=== PATIENT | female | born 1965 ===

== ENCOUNTER 2018-08-03 21:14 | Emergency (ER) | payer MEDICAID ==
[2018-08-03] MEDS ORDERED: Sodium Chloride 0.9% 1,000 ML IV ONE (21:45)
[2018-08-03 21:49] VITALS: RESP 20
[2018-08-03 21:52] LABS: SQUAMOUS EPITHIAL < 1 /hpf (0-5); URINE BACTERIA RARE (<OCC); URINE BILIRUBIN NEGATIVE (NEGATIVE); URINE BLOOD NEGATIVE (NEGATIVE); URINE CLARITY Clear (Clear); URINE COLOR Straw (YELLOW); URINE GLUCOSE (UA) NORMAL (Normal); URINE LEUKOCYTE ESTERASE NEG Leu/uL (Negative); URINE PROTEIN NEGATIVE (NEGATIVE); URINE UROBILINOGEN NORMAL mg/dL (0.2-1.0)
[2018-08-03 21:53] LABS: BASO # 0.1 K/uL (0.0-0.2); BASO % 0.5 % (0.0-2.0); EOS % 0.1 % (0.0-4.0); HEMOGLOBIN 15.6 g/dL (11.0-16.0); LYMPH # 1.2 K/uL (1.0-4.3); LYMPH % 10.7 % (20.0-40.0); MEAN CELL VOLUME 92.2 fL (81.0-99.0); MEAN CORPUSCULAR HEMOGLOBIN 30.5 pg (27.0-31.0); MEAN CORPUSCULAR HGB CONC 33.1 g/dL (33.0-37.0); MEAN PLATELET VOLUME 11.9 fL (7.2-11.7); MONO # 0.6 K/uL (0.0-0.8); MONO % 5.4 % (0.0-10.0); NEUT % 83.3 % (50.0-75.0); RBC 5.12 Mil/uL (3.80-5.20); RED CELL DISTRIBUTION WIDTH 13.3 % (11.5-14.5); WHITE BLOOD COUNT 10.8 K/uL (4.8-10.8)
[2018-08-03] MEDS ORDERED: Sodium Chloride 0.9% 1,000 ML ONE (21:55)
[2018-08-03 21:58] LABS: AMYLASE 218 U/L (30-110); BLOOD UREA NITROGEN 14 mg/dL (7-17); CALCIUM 9.6 mg/dl (8.6-10.4); GFR NON-AFRICAN AMERICAN > 60; LIPASE 92 U/L (23-300)
[2018-08-03 22:00] LABS: ALB/GLOB RATIO 1.4 (1.0-2.1); ALBUMIN 5.3 g/dL (3.5-5.0); ALT/SGPT 9 U/L (9-52); AST/SGOT 42 U/L (14-36)
[2018-08-03] MEDS ORDERED: Belladonna-Phenobarbital PO STA (22:05)
[2018-08-03] MEDS ORDERED: Aluminum Hydroxide/Magnesium Hydroxide Susp (30 mL) PO STA (22:05)
[2018-08-03] MEDS ORDERED: Aluminum Hydroxide/Magnesium Hydroxide Susp (30 mL) ONE (22:18)
[2018-08-03] MEDS ORDERED: Belladonna-Phenobarbital ONE (22:18)
[2018-08-04 00:34] VITALS: BP 136/85; PULSE 74; TEMP 98.5; O2SAT 97
--- NOTE | 2018-08-04 02:24 | C.PDOC ---
History Of Present Illness 53 year old female presents with right sided abdominal pain since yesterday with nausea. Denies vomiting, fever, bloody urine, bloody stool, or dysuria. She has Hx of gastritis but states this feels different. Chief Complaint (Nursing): Abdominal Pain History Per: Patient History/Exam Limitations: no limitations Onset/Duration Of Symptoms: Days (Yesterday) Current Symptoms Are (Timing): Still Present Location Of Pain/Discomfort: Other (Right sided) Quality Of Discomfort: Unable To Describe Associated Symptoms: denies: Fever, Chills, Nausea, Vomiting, Urinary Symptoms, Other (bloody stool) Exacerbating Factors: None Alleviating Factors: None Recent travel outside of the [place]: No Past Medical History Reviewed: Historical Data, Nursing Documentation, Vital Signs Vital Signs: Last Vital Signs Temp 98.5 F 08/04/18 00:33 Pulse 74 08/04/18 00:33 Resp 20 08/04/18 00:33 BP 136/85 08/04/18 00:33 Pulse Ox 97 08/04/18 00:33 - Medical History PMH: Gastritis, HTN Denies: Chronic Kidney Disease Family History: States: Unknown Family Hx - Social History Hx Alcohol Use: No Hx Substance Use: No - Immunization History Hx Tetanus Toxoid Vaccination: No Hx Influenza Vaccination: Yes Hx Pneumococcal Vaccination: No Review Of Systems Constitutional: Negative for: Fever Cardiovascular: Negative for: Chest Pain, Palpitations Respiratory: Negative for: Cough, Shortness of Breath Gastrointestinal: Positive for: Nausea, Abdominal Pain. Negative for: Vomiting Genitourinary: Negative for: Dysuria, Hematuria, Other (Bloody stool) Physical Exam - Physical Exam Appears: Non-toxic, Other (Thin) Skin: Normal Color, Warm, Dry Head: Atraumatic, Normacephalic Eye(s): bilateral: Normal Inspection Oral Mucosa: Moist Neck: Normal, Supple Chest: Symmetrical, No Tenderness Cardiovascular: Rhythm Regular Respiratory: Normal Breath Sounds, No Rales, No Rhonchi, No Wheezing Gastrointestinal/Abdominal: Soft, Tenderness (Right sided), No Distention, No Guarding, No Rebound Back: No CVA Tenderness Neurological/Psych: Oriented x3, Normal Speech ED Course And Treatment - Laboratory Results Result Diagrams: 08/03/18 21:40 08/03/18 21:40 Lab Results: APTT 37 SECONDS (21-34) H 08/03/18 21:40 Total Bilirubin 1.3 mg/dL (0.2-1.3) 08/03/18 21:40 AST 42 U/L (14-36) H 08/03/18 21:40 ALT 9 U/L (9-52) 08/03/18 21:40 Alkaline Phosphatase 122 U/L (38-126) 08/03/18 21:40 Total Protein 9.0 g/dL (6.3-8.3) H 08/03/18 21:40 Albumin 5.3 g/dL (3.5-5.0) H 08/03/18 21:40 Globulin 3.7 gm/dL (2.2-3.9) 08/03/18 21:40 Albumin/Globulin Ratio 1.4 (1.0-2.1) 08/03/18 21:40 Amylase 218 U/L (30-110) H 08/03/18 21:40 Lipase 92 U/L (23-300) 08/03/18 21:40 Urine Color Straw (YELLOW) 08/03/18 21:40 Urine Clarity Clear (Clear) 08/03/18 21:40 Urine pH 7.0 (5.0-8.0) 08/03/18 21:40 Ur Specific Magness 1.009 (1.003-1.030) 08/03/18 21:40 Urine Protein Negative mg/dL (NEGATIVE) 08/03/18 21:40 Urine Glucose (UA) Normal mg/dL (Normal) 08/03/18 21:40 Urine Ketones Trace mg/dL (NEGATIVE) 08/03/18 21:40 Urine Blood Negative (NEGATIVE) 08/03/18 21:40 Urine Nitrate Negative (NEGATIVE) 08/03/18 21:40 Urine Bilirubin Negative (NEGATIVE) 08/03/18 21:40 Urine Urobilinogen Normal mg/dL (0.2-1.0) 08/03/18 21:40 Ur Leukocyte Esterase Neg José Luis/uL (Negative) 08/03/18 21:40 Urine WBC (Auto) < 1 /hpf (0-5) 08/03/18 21:40 Urine RBC (Auto) < 1 /hpf (0-3) 08/03/18 21:40 Ur Squamous Epith Cells < 1 /hpf (0-5) 08/03/18 21:40 Urine Bacteria Rare (<OCC) 08/03/18 21:40 O2 Sat by Pulse Oximetry: 97 - CT Scan/US CT abd/pel Other Rad Studies (CT/US): Read By Radiologist, Radiology Report Reviewed CT/US Interpretation: EXAM: CT Abdomen and Pelvis with IV contrast. CLINICAL HISTORY: Right abd pain. TECHNIQUE: Axial computed tomography images of the abdomen and pelvis with intravenous contrast. 0.00 mGy-cm. CONTRAST: With; VISI 320 100MLS. COMPARISON: None provided. FINDINGS: LUNG BASES: The lung bases appear clear. No pleural effusions are seen. LIVER: Unremarkable. GALLBLADDER AND BILE DUCTS: The gallbladder appears within normal limits. No radioopaque gallstones are seen. No biliary ductal dilatation is evident. PANCREAS: Unremarkable. SPLEEN: Unremarkable. ADRENAL GLANDS: Unremarkable. KIDNEYS, URETERS, AND BLADDER: The kidneys appear within normal limits. There is no hydronephrosis or hydroureter. No urinary calculi are seen. The urinary bladder is normal in size and configuration. STOMACH AND BOWEL: Unremarkable appearance of the stomach. No evidence of bowel obstruction. There is mucosal wall thickening seen in the ascending colon with subtle pericolonic stranding present compatible with colitis. Additionally, mucosal wall is edematous thickening is seen in the sigmoid-rectosigmoid colon and rectum compatible with colitis/proctitis. Mucosal wall thickening is also seen throughout the small intestinal tract compatible with diffuse enteritis. Infectious or inflammatory etiologies are thought most likely. APPENDIX: No evidence of acute appendicitis on CT examination. PERITONEUM: No free fluid. No free air. LYMPH NODES: No lymphadenopathy is evident. REPRODUCTIVE: Unremarkable as visualized. VASCULATURE: No evidence of abdominal aortic aneurysm. Very minor atheromatous plaquing is noted. BONES: No aggressive appearing osseous lesion. No acute osseous pathology evident. IMPRESSION: 1. Findings compatible with diffuse enteritis. 2. Evidence of colitis involving the ascending colon, sigmoid, rectosigmoid colon. Evidence of proctitis is noted. Progress Note: CT abd/pel, blood work, and urinalysis ordered. IV fluids, zofran, toradol, maalox, pepcid, and administered. Disposition - Disposition Referrals: [facility] [Outside] [facility] [Outside] Disposition: HOME/ ROUTINE Disposition Time: 00:10 Condition: IMPROVED Additional Instructions: GLENDALY A YOUSSEF PIERRE, thank you for letting us take care of you today. The emergency medical care you received today was directed at your acute symptoms. If you were prescribed any medication, please fill it and take as directed. It may take several days for your symptoms to resolve. Return to the Emergency Department if your symptoms worsen, do not improve, or if you have any other problems. Please contact your doctor or call one of the physicians/clinics you have been referred to that are listed on the Patient Visit Information form that is included in your discharge packet. Bring any paperwork you were given at [facility] with you along with any medications you are taking to your follow up visit. Our treatment cannot replace ongoing medical care by a primary care provider outside of the emergency department. [facility] to be part of your care today. Follow up with the clinic this week for re-evaluation and further management. GAVIN PIERRE, caroline por dejarnos cuidar de ruma drake. La atencin mdica de emergencia que recibi hoy se dirigi a durga sntomas agudos. Si le recetaron algn medicamento, llnelo y tmelo segn las indicaciones. Los sntomas pueden tardar varios garcia en resolverse. Regrese al Departamento de Emergencias si durga sntomas empeoran, no mejoran o si tiene otros problemas. Comunquese con del cid mdico o llame a jia de los mdicos / clnicas a los que olsen sido referido que figuran en el formulario de Informacin de visita al paciente que se incluye en del cid paquete de soni. Lleve todos los documentos que le entregaron al momento del soni junto con todos los medicamentos que est tomando para del cid visita de seguimiento. Nuestro tratamiento no puede reemplazar la atencin mdica continua por un proveedor de atencin primaria fuera del departamento de emergencias. Caroline por permitir que el equipo de [facility] sea parte de del cid atencin hoy. Paulo un seguimiento con la clnica esta semana para reevaluar y administrar ms. Prescriptions: Ciprofloxacin [Cipro] 500 mg PO BID #14 tab Ibuprofen [Motrin] 600 mg PO Q6 PRN #20 tab PRN Reason: Pain, Moderate (4-7) metroNIDAZOLE [Flagyl] 500 mg PO TID #21 tab Instructions: Colitis Forms: [employer] (Dominican), Work Excuse Print Language: BURUNDIAN - Clinical Impression Clinical Impression: Colitis - Scribe Statement The provider has reviewed the documentation as recorded by the Scribe Jose Garcia All medical record entries made by the Scribe were at my direction and person ally dictated by me. I have reviewed the chart and agree that the record accurately reflects my personal performance of the history, physical exam, medical decision making, and the department course for this patient. I have also personally directed, reviewed, and agree with the discharge instructions and disposition.
--- NOTE | 2018-08-04 09:02 | CT ---
Date of service: 08/03/2018 PROCEDURE: CT Abdomen and Pelvis with contrast HISTORY: right-sided abdominal pain COMPARISON: None available TECHNIQUE: Contrast dose: 100 mL Visipaque 320 IV Radiation dose: Total exam DLP = 202.84 mGy-cm. This CT exam was performed using one or more of the following dose reduction techniques: Automated exposure control, adjustment of the mA and/or kV according to patient size, and/or use of iterative reconstruction technique. FINDINGS: LOWER THORAX: No visible consolidation, pleural effusion, or pneumothorax. LIVER: Unremarkable. GALLBLADDER AND BILE DUCTS: Unremarkable. PANCREAS: Unremarkable. SPLEEN: Unremarkable. ADRENALS: Unremarkable. KIDNEYS AND URETERS: The kidneys enhance symmetrically. No hydronephrosis or obstructing calculus identified. VASCULATURE: No aortic aneurysm. Atherosclerotic calcifications/mural plaque present in the aorta. BOWEL: Stomach is nondistended. Lack of oral contrast limits evaluation for bowel pathology. Bowel loops appear within normal limits of caliber without evidence of obstruction. Moderate diffuse constipation. APPENDIX: Dilated fluid filled tubular structure in the right lower quadrant measures approximately 12 mm in diameter. Surrounding inflammatory changes. Constellation of findings consistent with acute appendicitis. Correlate clinically. PERITONEUM: Small pelvic free fluid. No definite free air. LYMPH NODES: No bulky adenopathy identified. BLADDER: Unremarkable. REPRODUCTIVE: Unremarkable. BONES: No acute osseous abnormality is detected. OTHER FINDINGS: None. IMPRESSION: Dilated fluid filled tubular structure in the right lower quadrant measures approximately 12 mm in diameter. Surrounding inflammatory changes. Constellation of findings consistent with acute appendicitis. Correlate clinically. Preliminary impression was provided by [employer]. Findings discussed with CHRISTOS Briggs on 08/04/18 at 8:57 a.m.
== END 2018-08-04 00:40 | disposition home or self-care (01) ==
LOC: C.ER 21:14
DX: K52.9 Noninfective gastroenteritis and colitis, unspecified (principal); I10 Essential (primary) hypertension
CPT/HCPCS: 74177; 80053; 81001; 82150; 83690; 85025; 85730; 96374; 96375; 99284; J1885; J2405; J7030

== ENCOUNTER 2018-08-04 11:49 | Inpatient (IN) | payer MEDICAID, OTHER ==
--- NOTE | 2018-08-04 12:29 | C.PDOC ---
History Of Present Illness 53 y/o female with a PMHx of HTN and HLD returns to the ED for evaluation after being called back due to updated CT read of appendicitis this morning. Patient was seen here in the ED last night for right lower quadrant abdominal pain, and was discharged with a diagnosis of colitis with prescriptions for cipro and flagyl. Pt had N/V yesterday but none today. She is still complaining of RLQ pain on arrival today. Denies any fever, chills, nausea, vomiting, back pain, urinary symptoms, diarrhea, chest pain, SOB, or any other associated symptoms today. Time Seen by Provider: 08/04/18 12:10 Chief Complaint (Nursing): Abdominal Pain History Per: Patient History/Exam Limitations: no limitations Onset/Duration Of Symptoms: Days Current Symptoms Are (Timing): Still Present Location Of Pain/Discomfort: RLQ Past Medical History Reviewed: Historical Data, Nursing Documentation, Vital Signs Vital Signs: Last Vital Signs Temp 98.2 F 08/04/18 12:02 Pulse 72 08/04/18 12:02 Resp 18 08/04/18 12:02 BP 120/81 08/04/18 12:02 Pulse Ox 98 08/04/18 12:02 - Medical History PMH: Gastritis, HTN, Hyperlipidemia Denies: Chronic Kidney Disease Family History: States: Unknown Family Hx - Social History Hx Alcohol Use: No Hx Substance Use: No - Immunization History Hx Tetanus Toxoid Vaccination: No Hx Influenza Vaccination: Yes Hx Pneumococcal Vaccination: No Review Of Systems Except As Marked, All Systems Reviewed And Found Negative. Constitutional: Negative for: Fever, Chills Cardiovascular: Negative for: Chest Pain Respiratory: Negative for: Shortness of Breath Gastrointestinal: Positive for: Abdominal Pain (RLQ). Negative for: Nausea, Vomiting, Diarrhea Genitourinary: Negative for: Dysuria, Frequency, Hematuria Musculoskeletal: Negative for: Back Pain Skin: Negative for: Rash Neurological: Negative for: Weakness, Numbness Physical Exam - Physical Exam Appears: Non-toxic, No Acute Distress, Other (uncomfortable) Skin: Normal Color, Warm, Dry Head: Atraumatic, Normacephalic Eye(s): bilateral: Normal Inspection, PERRL, EOMI Oral Mucosa: Moist Neck: Normal ROM, Supple Chest: Symmetrical Cardiovascular: Rhythm Regular, No Murmur Respiratory: Normal Breath Sounds, No Rales, No Rhonchi, No Wheezing Gastrointestinal/Abdominal: Bowel Sounds (normoactive), Soft, Tenderness (to the right lower quadrant), No Mass, No Distention, Guarding, Rebound, No Ascites Back: Normal Inspection, No CVA Tenderness Extremity: Normal ROM, Capillary Refill (<2s) Extremity: Bilateral: Atraumatic, Normal Color And Temperature Pulses: Left Radial: Normal, Right Radial: Normal Neurological/Psych: Oriented x3, Normal Speech, Normal Motor, Normal Sensation Gait: Steady ED Course And Treatment - Laboratory Results Result Diagrams: 08/05/18 06:58 08/05/18 06:58 Lab Results: 08/04/18 12:48 ECG: Viewed By Me ECG Rhythm: Sinus Rhythm Interpretation Of ECG: Rate 76; NSR; Normal Intervals; No STEMI, nonspecific ST/T wave changes Rate From EC O2 Sat by Pulse Oximetry: 98 (RA) Pulse Ox Interpretation: Normal - Radiology CXR: Viewed By Me CXR Interpretation: Yes: No Acute Disease Medical Decision Making Medical Decision Making: Impression: 53 y/o female with RLQ pain, known appendicitis on CT Initial Plan: - EKG - Chest x-ray - CMP - CBC - PTT/PT - Blood culture - 2 mg IV Morphine - IV fluids infusing - Patient kept NPO 1300 Labwork reviewed, significant for WBC of 20, increased from 10.[address] Chavez, surgery on-call. [address] Chavez, recommends starting patient on IV Ancef and Flagyl. He will take patient to the OR this afternoon for appendectomy, requesting admission to hospitalist service [address] Brown accepted patient to her service with diagnosis of acute appendicitis to med/surg floor. [address] Brown asking for patient to be admitted to surgical service with medical consult. 1425 Dr. Tinsley accepted patient to his service, med/surg floor with diagnosis of acute appendicitis. Medicine will be on consult for patient's chronic conditions. Patient and family made aware of change in disposition. Patient resting comfortably in stretcher in NAD with stable vital signs at this time. Disposition Counseled Patient/Family Regarding: Studies Performed, Diagnosis - Disposition Disposition: HOSPITALIZED Disposition Time: 13:25 Condition: STABLE - POA Present On Arrival: None - Clinical Impression Clinical Impression: Appendicitis, acute, Leukocytosis - PA / BALLET SOLOIST / Resident Statement MD/DO has reviewed & agrees with the documentation as recorded. - Scribe Statement The provider has reviewed the documentation as recorded by the Olivieribgale Hoover All medical record entries made by the Olivieribgale were at my direction and personally dictated by me. I have reviewed the chart and agree that the record accurately reflects my personal performance of the history, physical exam, medical decision making, and the department course for this patient. I have also personally directed, reviewed, and agree with the discharge instructions and disposition.
[2018-08-04 12:52] LABS: BASO % 0.2 % (0.0-2.0); EOS % 0.1 % (0.0-4.0); HEMOGLOBIN 14.1 g/dL (11.0-16.0); MEAN CELL VOLUME 93.3 fL (81.0-99.0); MEAN CORPUSCULAR HEMOGLOBIN 31.2 pg (27.0-31.0); MEAN CORPUSCULAR HGB CONC 33.5 g/dL (33.0-37.0); MEAN PLATELET VOLUME 11.2 fL (7.2-11.7); MONO # 1.5 K/uL (0.0-0.8); MONO % 7.5 % (0.0-10.0); NEUT # 17.5 K/uL (1.8-7.0); NEUT % 87.2 % (50.0-75.0); PLATELET COUNT 216 K/uL (130-400); RBC 4.53 Mil/uL (3.80-5.20); RED CELL DISTRIBUTION WIDTH 13.3 % (11.5-14.5)
[2018-08-04 13:00] LABS: INR 1.3
[2018-08-04 13:07] LABS: ALB/GLOB RATIO 1.5 (1.0-2.1); ALBUMIN 4.5 g/dL (3.5-5.0); ALT/SGPT 13 U/L (9-52); AST/SGOT 24 U/L (14-36); BLOOD UREA NITROGEN 15 mg/dL (7-17); CALCIUM 9.2 mg/dl (8.6-10.4); GFR NON-AFRICAN AMERICAN > 60
[2018-08-04] MEDS ORDERED: Sodium Chloride 0.9% 1,000 ML IV ONE (13:07)
[2018-08-04] MEDS ORDERED: metroNIDAZOLE IV 500 mg/100 ml 500 MG/100 ML BAG IVPB STA (13:18)
[2018-08-04 13:40] LABS: LYMPHOCYTE 4 % (20-40); MONOCYTE 2 % (0-10); NEUTROPHIL 94 % (50-75); TOTAL CELLS COUNTED 100
[2018-08-04 13:41] LABS: PLATELET ESTIMATE NORMAL (NORMAL)
[2018-08-04] MEDS ORDERED: metroNIDAZOLE IV 500 mg/100 ml 500 MG/100 ML BAG ONE (13:42)
[2018-08-04] MEDS ORDERED: Sodium Chloride 0.9% 1,000 ML ONE (13:43)
--- NOTE | 2018-08-04 14:19 | RAD ---
Date of service: 08/04/2018 HISTORY: admission COMPARISON: None available. FINDINGS: LUNGS: No active pulmonary disease. PLEURA: No significant pleural effusion identified, no pneumothorax apparent. CARDIOVASCULAR: No aortic atherosclerotic calcification present. Normal cardiac size. No pulmonary vascular congestion. OSSEOUS STRUCTURES: No significant abnormalities. VISUALIZED UPPER ABDOMEN: Normal. OTHER FINDINGS: None. IMPRESSION: No acute cardiopulmonary disease appreciated.
--- NOTE | 2018-08-04 14:34 | CP.PCM.CON ---
<Christopher Duff - Last Filed: 08/04/18 17:30> History of Present Illness - History of Present Illness History of Present Illness: PGY1 Medicine consult note for Dr. Brown This is a 53 year old female with PMH of HTN and gastritis presenting to the ED for sudden onset right-sided abdominal pain that began yesterday morning. He has had nausea, with 3 episodes of nonbloody, nonbilious vomiting yesterday. Endorses chills, but no fever. Denies chest pain, palpitations, sob, cough, rash. Pt was seen in the [facility] ED yesterday, and prelim abdominal CT reading showed colitis. She was discharged with ciprofloxacin, flagyl and Tylenol. Official read of abdominal CT showed findings consistent with acute appendicitis. Pt underwent lap appendectomy by Dr. Chavez today. I examined and interviewed the pt after the procedure. She states that she feels better right now, and offers no new complaints. Labs today showed WBC of 20. PMD: in gogo PMHx: HTN, HLD, gastritis PSHx: Hysterectomy, cyst removal from right breast Meds: Omeprazole 40 mg PO daily, Carvedilol 12.5 mg PO daily Allx: as per AUG FHx: Mother: Alzheimer's dementia, DM, and HTN. Father: from hepatocellular carcinoma. Social History: Pt lives with her and children. She denies tobacco usage, EtOH consumption, or any illicit drug use. Review of Systems - Review of Systems All systems: reviewed and no additional remarkable complaints except Past Patient History - Past Social History Smoking Status: Never Smoked - CARDIAC Hx Hypertension: Yes - PULMONARY Hx Respiratory Disorders: No - NEUROLOGICAL Hx Neurological Disorder: No - HEENT Hx HEENT Problems: No - RENAL Hx Chronic Kidney Disease: No - ENDOCRINE/METABOLIC Hx Endocrine Disorders: No - HEMATOLOGICAL/ONCOLOGICAL Hx Blood Disorders: No - INTEGUMENTARY Hx Dermatological Problems: No - MUSCULOSKELETAL/RHEUMATOLOGICAL Hx Musculoskeletal Disorders: No - GASTROINTESTINAL Hx Gastritis: Yes - PSYCHIATRIC Hx Substance Use: No - SURGICAL HISTORY Hx Surgeries: No - ANESTHESIA Hx Anesthesia: No Meds Allergies/Adverse Reactions: Allergies Allergy/AdvReac Type Severity Reaction Status Date / Time VITAMIN B Allergy Mild Uncoded 08/03/18 21:34 VITAMIN B12 Allergy Mild Uncoded 08/03/18 21:34 B COMPLEX Allergy Uncoded 08/03/18 21:35 Physical Exam - Constitutional Appears: Non-toxic, No Acute Distress (thin) - Head Exam Head Exam: ATRAUMATIC, NORMAL INSPECTION - Eye Exam Eye Exam: EOMI, Normal appearance - ENT Exam ENT Exam: Mucous Membranes Moist - Respiratory Exam Respiratory Exam: Clear to Auscultation Bilateral, NORMAL BREATHING PATTERN. absent: Decreased Breath Sounds, Rales, Rhonchi, Wheezes, Stridor - Cardiovascular Exam Cardiovascular Exam: REGULAR RHYTHM, +S1, +S2. absent: Tachycardia - GI/Abdominal Exam GI & Abdominal Exam: Normal Bowel Sounds, Soft ((+) 3 laproscopic sites, clean, dry, intact, no active bleeding). absent: Tenderness - Extremities Exam Extremities exam: Positive for: normal inspection, pedal pulses present. Negative for: calf tenderness, pedal edema - Neurological Exam Neurological exam: Alert, Oriented x3 - Psychiatric Exam Psychiatric exam: Normal Affect, Normal Mood - Skin Skin Exam: Dry, Normal Color, Warm Results - Vital Signs Recent Vital Signs: Last Vital Signs Temp 98.2 F 08/04/18 12:02 Pulse 79 08/04/18 13:51 Resp 16 08/04/18 13:51 BP 123/89 08/04/18 13:51 Pulse Ox 98 08/04/18 14:03 - Labs Result Diagrams: 08/04/18 12:48 08/04/18 12:48 Labs: Laboratory Results - last 24 hr 08/04/18 08/04/18 08/04/18 12:48 12:48 12:48 WBC 20.0 H D RBC 4.53 Hgb 14.1 Hct 42.2 MCV 93.3 MCH 31.2 H MCHC 33.5 RDW 13.3 Plt Count 216 MPV 11.2 Neut % (Auto) 87.2 H Lymph % (Auto) 5.0 L Pickett % (Auto) 7.5 Eos % (Auto) 0.1 Baso % (Auto) 0.2 Neut # (Auto) 17.5 H Lymph # (Auto) 1.0 Pickett # (Auto) 1.5 H Eos # (Auto) 0.0 Baso # (Auto) 0.0 Neutrophils % (Manual) 94 H Lymphocytes % (Manual) 4 L Monocytes % (Manual) 2 Platelet Estimate Normal RBC Morphology Normal PT 14.0 H INR 1.3 APTT 34 Sodium 135 Potassium 3.9 Chloride 102 Carbon Dioxide 27 Anion Gap 10 BUN 15 Creatinine 0.9 Est GFR ( Amer) > 60 Est GFR (Non-Af Amer) > 60 Random Glucose 107 H Calcium 9.2 Total Bilirubin 1.1 AST 24 ALT 13 Alkaline Phosphatase 104 Total Protein 7.5 Albumin 4.5 Globulin 3.1 Albumin/Globulin Ratio 1.5 Assessment & Plan - Assessment and Plan (Free Text) Assessment: This is a 53 year old female with PMHx of HTN and gastritis presenting to the ED for sudden onset right-sided abdominal pain yesterday, worsening today. Pt taken to OR today. Plan: Acute appendicitis, POD#0 lap appendectomy Surgery performed by Dr. Chavez Antibiotics, CLD, pain management as per surgery Hx of HTN Will continue home carvedilol 12.5 mg PO daily tomorrow Hx of gastritis Pepcid 20 mg PO daily PPx: Pepcid 20 mg PO daily SCDs CLD tonight as per surgery. Discharge in am as per Dr. Chavez, if pt tolerating diet. Case discussed with Dr. Brown <Ginna Brown - Last Filed: 08/04/18 17:42> Meds - Medications Medications: Current Medications Carvedilol (Coreg) 12.5 mg PO DAILY SABRINA Famotidine (Pepcid) 20 mg PO DAILY SABRINA Cefazolin Sodium (Ancef 1gm In Ns) 1 gm in 100 mls @ 100 mls/hr IVPB Q8H SABRINA; Protocol Morphine Sulfate (Morphine) 2 mg IVP Q10M PRN PRN Reason: Pain, moderate (4-7) Stop: 08/04/18 17:40 Last Admin: 08/04/18 16:50 Dose: 2 mg Ondansetron HCl (Zofran Inj) 4 mg IVP Q6H PRN PRN Reason: nausea Oxycodone/Acetaminophen (Percocet 5/325 Mg Tab) 2 tab PO Q4H PRN PRN Reason: pain Stop: 08/07/18 16:31 Results - Vital Signs Recent Vital Signs: Last Vital Signs Temp 97.5 F L 08/04/18 16:06 Pulse 76 08/04/18 16:45 Resp 14 08/04/18 16:45 BP 141/93 H 02/19/19 16:45 Pulse Ox 100 08/04/18 16:45 - Labs Result Diagrams: 08/04/18 12:48 08/04/18 12:48 Labs: Laboratory Results - last 24 hr 08/04/18 08/04/18 08/04/18 12:48 12:48 12:48 WBC 20.0 H D RBC 4.53 Hgb 14.1 Hct 42.2 MCV 93.3 MCH 31.2 H MCHC 33.5 RDW 13.3 Plt Count 216 MPV 11.2 Neut % (Auto) 87.2 H Lymph % (Auto) 5.0 L Pickett % (Auto) 7.5 Eos % (Auto) 0.1 Baso % (Auto) 0.2 Neut # (Auto) 17.5 H Lymph # (Auto) 1.0 Pickett # (Auto) 1.5 H Eos # (Auto) 0.0 Baso # (Auto) 0.0 Neutrophils % (Manual) 94 H Lymphocytes % (Manual) 4 L Monocytes % (Manual) 2 Platelet Estimate Normal RBC Morphology Normal PT 14.0 H INR 1.3 APTT 34 Sodium 135 Potassium 3.9 Chloride 102 Carbon Dioxide 27 Anion Gap 10 BUN 15 Creatinine 0.9 Est GFR ( Amer) > 60 Est GFR (Non-Af Amer) > 60 Random Glucose 107 H Calcium 9.2 Total Bilirubin 1.1 AST 24 ALT 13 Alkaline Phosphatase 104 Total Protein 7.5 Albumin 4.5 Globulin 3.1 Albumin/Globulin Ratio 1.5 Attending/Attestation - Attestation I have personally seen and examined this patient.: Yes I have fully participated in the care of the patient.: Yes I have reviewed all pertinent clinical information: Yes Notes (Text): Seen and examined at the PACU has history of hypertension. s/p appendectomy for appendicitis observe tonight and d/c if tolerate breakfast as per surgeon resume her home meds tomorrow morning
[2018-08-04] MEDS ORDERED: Midazolam 2 MG/2 ML VIAL ONE (15:05)
[2018-08-04] MEDS ORDERED: Propofol 10 mg/ml Inj (20 ML) ONE (15:05)
[2018-08-04] MEDS ORDERED: Lidocaine Hydrochloride 5 ML INJ ONE (15:15)
[2018-08-04] MEDS ORDERED: Rocuronium 10 mg/ml (5 ml) ONE (15:15)
[2018-08-04] MEDS ORDERED: Succinylcholine Chloride 20 mg/ml Syr (5 ml) IV ONE (15:15)
[2018-08-04] MEDS ORDERED: Neostigmine 1:1000 (1 mg/ml) Inj ONE (16:08)
[2018-08-04 17:41] VITALS: RESP 20
[2018-08-04] MEDS: ceFAZolin 1 gm in NS 1 GM/100 ML BAG IVPB SCH (21:34)
[2018-08-04] MEDS: Oxycodone/Acetaminophen 5/325 mg Tab PO PRN (21:41)
[2018-08-05] MEDS: ceFAZolin 1 gm in NS 1 GM/100 ML BAG IVPB SCH ×2 (05:04→14:27)
[2018-08-05] MEDS: Oxycodone/Acetaminophen 5/325 mg Tab PO PRN ×2 (05:56→13:27)
[2018-08-05 07:17] LABS: BASO # 0.1 K/uL (0.0-0.2); BASO % 0.4 % (0.0-2.0); EOS % 0.1 % (0.0-4.0); HEMOGLOBIN 12.6 g/dL (11.0-16.0); LYMPH # 1.1 K/uL (1.0-4.3); MEAN CELL VOLUME 93.1 fL (81.0-99.0); MEAN CORPUSCULAR HEMOGLOBIN 31.3 pg (27.0-31.0); MEAN CORPUSCULAR HGB CONC 33.7 g/dL (33.0-37.0); MEAN PLATELET VOLUME 12.4 fL (7.2-11.7); MONO # 0.7 K/uL (0.0-0.8); MONO % 4.4 % (0.0-10.0); NEUT # 14.3 K/uL (1.8-7.0); NEUT % 88.1 % (50.0-75.0); PLATELET COUNT 168 K/uL (130-400); RBC 4.03 Mil/uL (3.80-5.20); RED CELL DISTRIBUTION WIDTH 13.8 % (11.5-14.5); WHITE BLOOD COUNT 16.3 K/uL (4.8-10.8)
[2018-08-05 07:39] LABS: ALB/GLOB RATIO 1.5 (1.0-2.1); ALBUMIN 3.8 g/dL (3.5-5.0); ALT/SGPT 15 U/L (9-52); AST/SGOT 53 U/L (14-36); BLOOD UREA NITROGEN 12 mg/dL (7-17); CALCIUM 8.7 mg/dl (8.6-10.4); GFR NON-AFRICAN AMERICAN > 60
--- NOTE | 2018-08-05 07:50 | OP ---
PROCEDURE DATE: 08/04/2018 PREOPERATIVE DIAGNOSIS: Acute appendicitis. POSTOPERATIVE DIAGNOSIS: Acute appendicitis. PROCEDURE PERFORMED: Laparoscopic appendectomy. SURGEON: Jerry Chavez MD ANESTHESIA: General. BLOOD LOSS: 30 mL. POSTOPERATIVE CONDITION: Stable. INDICATIONS FOR SURGERY: This is a 53-year-old female with a history of right lower quadrant pain, seen in the emergency room, found to have appendicitis on CAT scan, taken to the operating room now for laparoscopic appendectomy. GROSS FINDINGS: The appendix was acutely inflamed. There was a phlegmon of small bowel in the right lower quadrant, and adhesions had to be taken down laparoscopically prior to mobilizing the appendix. DESCRIPTION OF PROCEDURE: The patient was taken to the operating room. General anesthesia was administered. The abdomen was prepped and draped. A periumbilical cut down was performed. A blunt port was inserted. The abdomen was insufflated with CO2. A camera was inserted into the abdomen under direct vision. A suprapubic and left lower quadrant ports were placed. The adhesions were taken down sharply with scissors and blunt dissection. Serosal tears were repaired laparoscopically. The appendix was mobilized. The mesoappendix was divided using the Harmonic scalpel. The base of the appendix was divided using an Endo JERMAINE and the appendix was placed in an EndoCatch and removed through the lateral port. The abdomen was irrigated with saline until clear. The ports were removed. The fascial defects were closed with Vicryl. Skin was closed with subcuticular Monocryl. The patient tolerated the procedure well and was returned to the recovery room in stable condition. Jerry Chavez MD
[2018-08-05 09:58] LABS: ANISOCYTOSIS SLIGHT; EOSINOPHIL 1 % (0-4); LARGE PLATELETS PRESENT; LYMPHOCYTE 10 % (20-40); MONOCYTE 3 % (0-10); NEUTROPHIL 86 % (50-75); OVALOCYTES SLIGHT; PLATELET ESTIMATE NORMAL (NORMAL); POIKILOCYTOSIS SLIGHT; TOTAL CELLS COUNTED 100
[2018-08-05] MEDS: Dextrose 5%/0.45% NS 1,000 ML IV SCH (15:41)
--- NOTE | 2018-08-05 17:00 | CP.PCM.PCO ---
<Milan Simon - Last Filed: 08/05/18 16:58> Assessment & Plan - Assessment and Plan (Free Text) Plan: Patient had D/C order placed for this morning pending tolerating diet. Nurse paged regarding bladder retention of approximately 600cc urine. Gave order to straight cath. Further recommendations as per primary. <Linden Nunes - Last Filed: 08/06/18 19:24> Attending/Attestation - Attestation I have personally seen and examined this patient.: No I have fully participated in the care of the patient.: Yes I have reviewed all pertinent clinical information: Yes
[2018-08-05] MEDS: ceFAZolin 1 GM in Sodium Chloride 0.9% 100 ML IVPB SCH (21:20)
--- NOTE | 2018-08-05 21:50 | CARD ---
APPROVED REPORT Date of service: 08/04/2018 EKG Measurement Heart [id number] <Conclusion> Normal sinus rhythm short AR interval Septal infarct, age undetermined Abnormal ECG
[2018-08-06] MEDS: Dextrose 5%/0.45% NS 1,000 ML IV SCH ×2 (01:25→12:25)
[2018-08-06] MEDS: Oxycodone/Acetaminophen 5/325 mg Tab PO PRN (03:03)
[2018-08-06] MEDS: ceFAZolin 1 GM in Sodium Chloride 0.9% 100 ML IVPB SCH (06:02)
--- NOTE | 2018-08-06 09:55 | CP.PCM.PN ---
Subjective - Date & Time of Evaluation Date of Evaluation: 08/06/18 Time of Evaluation: 09:55 - Subjective Subjective: HOSPITALIST SERVICE Pt s/e at bedside, reports improved abd pain, however intermediate card tender, reports ability to void, no longer needs brown, reports nausea but no longer vomiting, able to eat pudding, pt understands she needs to f/u with a pmd, told me in last 3 years she has only seen a Dr 1 or 2 times for her anorexia/appetite loss. Pt eats casava and teas and gatorades at home, cant eat big meals. denies CP SOB FC Objective - Vital Signs/Intake and Output Vital Signs (last 24 hours): Temp Pulse Resp BP Pulse Ox 97.8 F 65 20 145/85 96 08/06/18 08:00 08/06/18 08:00 08/06/18 08:00 08/06/18 08:00 08/06/18 08:00 Intake and Output: 08/06/18 08/06/18 06:59 18:59 Intake Total 1950 Output Total 250 Balance 1700 - Medications Medications: Current Medications Carvedilol (Coreg) 12.5 mg PO DAILY [facility] Last Admin: 08/05/18 10:56 Dose: Not Given Famotidine (Pepcid) 20 mg PO DAILY [facility] Last Admin: 08/05/18 10:56 Dose: 20 mg Dextrose/Sodium Chloride (Dextrose 5%/0.45% Ns 1000 Ml) 1,000 mls @ 100 mls/hr IV .Q10H [facility] Last Admin: 08/06/18 01:25 Dose: 100 mls/hr Cefazolin Sodium 1 gm/ Sodium (Chloride) 100 mls @ 100 mls/hr IVPB Q8H [facility]; Protocol Last Admin: 08/06/18 06:02 Dose: 100 mls/hr Ondansetron HCl (Zofran Inj) 4 mg IVP Q4H PRN PRN Reason: nausea Last Admin: 08/06/18 08:36 Dose: 4 mg Oxycodone/Acetaminophen (Percocet 5/325 Mg Tab) 2 tab PO Q4H PRN PRN Reason: pain Stop: 08/07/18 16:31 Last Admin: 08/06/18 03:03 Dose: 2 tab Pneumococcal Polyvalent Vaccine (Pneumovax 23 Vaccine) 0.5 ml IM .ONCE ONE Stop: 08/06/18 10:01 - Labs Labs: 08/05/18 06:58 08/05/18 06:58 PT 14.0 SECONDS (9.7-12.2) H 08/04/18 12:48 INR 1.3 08/04/18 12:48 APTT 34 SECONDS (21-34) 08/04/18 12:48 - Additional Findings Additional findings: - Constitutional Appears: Non-toxic, No Acute Distress (thin) - Head Exam Head Exam: ATRAUMATIC, NORMAL INSPECTION - Eye Exam Eye Exam: EOMI, Normal appearance - ENT Exam ENT Exam: Mucous Membranes Moist - Respiratory Exam Respiratory Exam: Clear to Auscultation Bilateral, NORMAL BREATHING PATTERN. absent: Decreased Breath Sounds, Rales, Rhonchi, Wheezes, Stridor - Cardiovascular Exam Cardiovascular Exam: REGULAR RHYTHM, +S1, +S2. absent: Tachycardia - GI/Abdominal Exam GI & Abdominal Exam: Normal Bowel Sounds, Soft ((+) 3 laproscopic sites, clean, dry, intact, no active bleeding). mild diffuse Tenderness, no gaurding, no r igidity, non distended - Extremities Exam Extremities exam: Positive for: normal inspection, pedal pulses present. Negative for: calf tenderness, pedal edema - Neurological Exam Neurological exam: Alert, Oriented x3 - Psychiatric Exam Psychiatric exam: Normal Affect, Normal Mood - Skin Skin Exam: Dry, Normal Color, Warm Assessment and Plan - Assessment and Plan (Free Text) Assessment: This is a 53 year old female with PMHx of HTN and gastritis presenting to the ED for sudden onset right-sided abdominal pain yesterday, worsening today. Pt taken for [place] 08/04 POD#2 Plan: Acute appendicitis, POD#0 lap appendectomy Surgery performed by Dr. Chavez- POD#2 Antibiotics, pain management as per surgery Ambulating well Afebrile overnight Voiding urine normally, no longer w/ brown Per Sx- advance diet and d/c home tonight @6pm Hx of HTN carvedilol 12.5 mg PO daily Hx of gastritis Pepcid 20 mg PO daily 6 yr hx of dsicomfort w/ anorexic features recommending f/u at [facility] call [phone] to schedule with the GI clinic there PPx: Pepcid 20 mg PO daily SCDs HHD. Discharge @6pm as per Dr. Chavez, if pt tolerating diet.
[2018-08-06] MEDS ORDERED: Pneumococcal 23-Valent Vaccine IM ONE (10:00)
[2018-08-06 16:22] VITALS: BP 150/84; PULSE 63; TEMP 98.9; O2SAT 99
== END 2018-08-06 19:17 | disposition home or self-care (01) | DRG 883 ==
LOC: C.ER 11:49 → C.9E 13:25 → OBSVTOIN 13:25 → C.3T 17:33
PROVIDERS: ADMIT Surgery; ATTEND Surgery
PROC: 0DTJ4ZZ Resection of Appendix, Percutaneous Endoscopic Approach (ICD-10-PCS; principal; 2018-08-04 13:15)
DX: K35.80 Unspecified acute appendicitis (principal); I10 Essential (primary) hypertension; E78.5 Hyperlipidemia, unspecified; K52.9 Noninfective gastroenteritis and colitis, unspecified

== ENCOUNTER 2018-08-11 11:26 | Emergency (ER) | payer MEDICAID ==
[2018-08-11] MEDS ORDERED: Iohexol 240 (50 ml) PO ONE (12:54)
--- NOTE | 2018-08-11 12:55 | C.PDOC ---
History Of Present Illness 53 y/o female,w/PMhx of HTN and hyperlipidemia, presents to the ER complaining of abdominal pain s/p laporoscopic appendectomy 1 week ago. Patient states that she has diffuse pain worse in the periumbilical region. Patient describes the pain as sharp and that she was evaluated today and referred by to the ER to rule out intra-abdominal abscess. She notes that she has subjective fever and chills at home. She did not take any medications for the pain. Denies having headache, dizziness, CP, SOB, nausea, vomiting, diarrhea, back pain, urinary symptoms, skin changes, or any other associated symptoms. Time Seen by Provider: 08/11/18 12:16 Chief Complaint (Nursing): Abdominal Pain History Per: Patient History/Exam Limitations: no limitations Onset/Duration Of Symptoms: Days Current Symptoms Are (Timing): Still Present Severity: Moderate Past Medical History Reviewed: Historical Data, Nursing Documentation, Vital Signs Vital Signs: Last Vital Signs Temp 97.4 F L 08/11/18 11:30 Pulse 57 L 08/11/18 11:30 Resp 20 08/11/18 11:30 BP 149/90 08/11/18 11:30 Pulse Ox 100 08/11/18 11:30 - Medical History PMH: Gastritis, HTN, Hyperlipidemia Denies: Chronic Kidney Disease Surgical History: Appendectomy Other Surgeries: Hx of surgeries - [facility] Procedures RESECTION OF APPENDIX, PERCUTANEOUS ENDOSCOPIC APPROACH (08/04/18) Family History: States: No Known Family Hx - Social History Hx Alcohol Use: No Hx Substance Use: No - Immunization History Hx Tetanus Toxoid Vaccination: No Hx Influenza Vaccination: Yes (08/07/2018) Hx Pneumococcal Vaccination: No Review Of Systems Except As Marked, All Systems Reviewed And Found Negative. Constitutional: Positive for: Chills. Negative for: Fever Eyes: Negative for: Vision Change ENT: Negative for: Nose Congestion Cardiovascular: Negative for: Chest Pain, Palpitations, Light Headedness Respiratory: Negative for: Cough, Shortness of Breath Gastrointestinal: Positive for: Abdominal Pain. Negative for: Nausea, Vomiting Genitourinary: Negative for: Dysuria, Hematuria Musculoskeletal: Negative for: Neck Pain, Back Pain Skin: Negative for: Rash, Other (cellulitis) Neurological: Negative for: Weakness, Numbness, Headache, Dizziness Physical Exam - Physical Exam Appears: Well, Non-toxic, No Acute Distress Skin: Normal Color, Warm, Dry Head: Atraumatic, Normacephalic Eye(s): bilateral: Normal Inspection, PERRL, EOMI Nose: Normal Oral Mucosa: Moist Neck: Normal, Normal ROM, Supple, No Other (no meningeal signs) Chest: Symmetrical Cardiovascular: Rhythm Regular Respiratory: Normal Breath Sounds, No Rales, No Rhonchi, No Wheezing Gastrointestinal/Abdominal: Bowel Sounds (normoactive), Soft, Tenderness (generalized abdominal tenderness), No Mass, No Distention, No Guarding, No Rebound, No Hernia, No Ascites, Other (well healing laparoscopic surgical incisions to abdomen, no signs of infection) Back: Normal Inspection, No CVA Tenderness Extremity: Normal ROM, Capillary Refill (<2s) Pulses: Left Radial: Normal, Right Radial: Normal Neurological/Psych: Oriented x3, Normal Speech, Normal Motor, Normal Sensation Gait: Steady ED Course And Treatment - Laboratory Results Result Diagrams: 08/11/18 12:53 08/11/18 12:53 Lab Interpretation: Normal O2 Sat by Pulse Oximetry: 100 (RA) Pulse Ox Interpretation: Normal - Other Rad CT Abd/Pelvis X-Ray: Viewed By Me, Read By Radiologist Interpretation: FINDINGS: LOWER THORAX: Unremarkable. Lung bases clear. No infiltrate effusion or basilar pneumothorax. LIVER: Unremarkable. No gross lesion or ductal dilatation. GALLBLADDER AND BILE DUCTS: Unremarkable. PANCREAS: Unremarkable. No mass. No ductal dilatation. SPLEEN: Unremarkable. No splenomegaly. ADRENALS: Unremarkable. KIDNEYS AND URETERS: Unremarkable. No stone or hydronephrosis. BLADDER: Grossly unremarkable. REPRODUCTIVE: Hysterectomy. APPENDIX: Recent appendectomy. BOWEL: Evaluation of the bowel is somewhat limited due to incomplete opacification. The stomach is distended with oral contrast material and air. There are multiple loops of proximal small bowel including the duodenum, in the upper abdomen that exhibit slight thick- walled appearance. Findings could represent an enteritis. Clinical correlation recommended. The there is a large amount of stool seen throughout the colon consistent with fecal retention/constipation. PERITONEUM: Small amount of free fluid is present within the pelvis. Note that the free fluid exhibits increased attenuation suggesting proteinaceous material possibly representing some postoperative hemorrhage. Possibility of superinfection cannot be excluded clinical correlation recommended.. Small amount of subcutaneous air seen in the left anterior lower abdomen.. No definitive evidence of free intraperitoneal air however note is made of few bubbles of air within the subcutaneous tissues left anterior lower abdomen.. LYMPH NODES: Unremarkable. No enlarged lymph nodes. VASCULATURE: Unremarkable. No aortic aneurysm. No significant aortic at herosclerotic calcification or mural plaque present. BONES: No evidence of acute compression fractures nor retropulsed fragments. Vertebral bodies exhibit normal stature. Vertebral bodies and facets normally aligned. There is partial sacralization right aspect of the L5 segment. OTHER FINDINGS: There are scattered calcified injection granulomata both buttocks. IMPRESSION: Recent appendectomy with small amount of free fluid in the pelvis. Note that the free fluid exhibits increased attenuation suggesting proteinaceous material possibly representing some postoperative hemorrhage. Possibility of superinfection cannot be excluded clinical correlation recommended.. Small amount of subcutaneous air seen in the left anterior lower abdomen.. Findings suggestive of localized enteritis involving multiple proximal small bowel loops. Findings also consistent with constipation. Hysterectomy. See above discussion for additional details and findings Medical Decision Making Medical Decision Making: Plan: --CBC, CMP --Coags --UA --CT-Abd & Pelv with PO and IV contrast [address] Chavez, who would like CT of Abdomen and Pelvis with PO and IV contrast as well as basic bloodwork. 1715 Spoke with patient's surgeon Dr. Chavez who was read the CT report and given results of bloodwork. Requests patient to be discharged home. VSS, no leukocytosis, no nausea or vomiting. Pt resting comfortably in stretcher eating potato chips at this time. VSS. No complaints, comfortable with discharge home. Diagnostic testing results and plan of care discussed with patient. Strict instructions given regarding prescription use, importance of followup, and signs/symptoms to return to ER including fever, chills, worsening pain, or any other new/worsening symptoms. Pt verbalized understanding of discussion. Patient is A&Ox3, ambulating with steady gait, with vital signs stable for discharge. Disposition Discussed With : Jerry Chavez Comment: Made aware of CT findings and lab results. States patient can followup outpatient with him on Friday, and call him if pain persists tomorrow. Doctor Will See Patient In The: Office - Disposition Referrals: Jerry Chavez MD [Staff Provider] - Disposition: HOME/ ROUTINE Disposition Time: 17:14 Condition: STABLE Additional Instructions: Llame al Dr. Scott millan si los sntomas persisten. De lo contrario, seguimiento el viernes (llamar para concertar raimundo). Seguimiento con mdico primario en 2 garcia. Regrese a la kailyn de emergencias con cualquier sntoma nuevo o que empeore Instructions: Acute Abdomen (Belly Pain), Adult (DC) Forms: General Discharge Instructions, [facility] (Jordanian), Work Excuse Print Language: LUXEMBOURGER - Clinical Impression Clinical Impression: Abdominal pain - PA / ASSEMBLING MACHINE OPERATOR / Resident Statement MD/DO has reviewed & agrees with the documentation as recorded. - Scribe Statement The provider has reviewed the documentation as recorded by the Scribe Summyuridia Delvalle Provider Attestation All medical record entries made by the Scribe were at my direction and personally dictated by me. I have reviewed the chart and agree that the record accurately reflects my personal performance of the history, physical exam, medical decision making, and the department course for this patient. I have also personally directed, reviewed, and agree with the discharge instructions and disposition.
[2018-08-11 12:59] LABS: BASO # 0.1 K/uL (0.0-0.2); BASO % 1.8 % (0.0-2.0); EOS # 0.2 K/uL (0.0-0.7); EOS % 4.1 % (0.0-4.0); HEMOGLOBIN 12.2 g/dL (11.0-16.0); LYMPH # 1.4 K/uL (1.0-4.3); LYMPH % 31.2 % (20.0-40.0); MEAN CELL VOLUME 93.1 fL (81.0-99.0); MEAN CORPUSCULAR HEMOGLOBIN 30.8 pg (27.0-31.0); MEAN PLATELET VOLUME 10.6 fL (7.2-11.7); MONO # 0.5 K/uL (0.0-0.8); MONO % 10.3 % (0.0-10.0); NEUT # 2.4 K/uL (1.8-7.0); NEUT % 52.6 % (50.0-75.0); RBC 3.97 Mil/uL (3.80-5.20); RED CELL DISTRIBUTION WIDTH 13.4 % (11.5-14.5)
[2018-08-11 13:05] LABS: SQUAMOUS EPITHIAL < 1 /hpf (0-5); URINE BACTERIA RARE (<OCC); URINE BILIRUBIN NEGATIVE (NEGATIVE); URINE BLOOD NEGATIVE (NEGATIVE); URINE CLARITY Clear (Clear); URINE COLOR Yellow (YELLOW); URINE GLUCOSE (UA) NORMAL (Normal); URINE LEUKOCYTE ESTERASE TRACE Leu/uL (Negative); URINE PROTEIN NEGATIVE (NEGATIVE)
[2018-08-11 13:06] LABS: INR 1.1; PROTHROMBIN TIME 11.8 SECONDS (9.7-12.2)
[2018-08-11] MEDS ORDERED: Iohexol 240 (50 ml) ONE (13:09)
[2018-08-11 13:15] LABS: WHITE BLOOD COUNT 4.6 K/uL (4.8-10.8)
[2018-08-11 13:24] LABS: ALB/GLOB RATIO 1.5 (1.0-2.1); ALBUMIN 3.9 g/dL (3.5-5.0); ALT/SGPT 19 U/L (9-52); AST/SGOT 26 U/L (14-36); BLOOD UREA NITROGEN 18 mg/dL (7-17); CALCIUM 8.9 mg/dl (8.6-10.4); GFR NON-AFRICAN AMERICAN > 60
[2018-08-11] MEDS ORDERED: Iodixanol 320 MG/ML 100 ML BOTTLE IV ONE (14:47)
[2018-08-11 15:15] VITALS: RESP 18
--- NOTE | 2018-08-11 17:15 | CT ---
Date of service: 08/11/2018 PROCEDURE: CT Abdomen and Pelvis. HISTORY: Abdominal pain surgeon request COMPARISON: Comparison made with prior study CT scan abdomen pelvis 08/03/2018. TECHNIQUE: Contiguous axial images of the abdomen and pelvis performed following oral and intravenous injection of approximately 100 cc Visipaque 320 contrast material. Additional 2D sagittal and coronal reformats generated. Radiation dose: Total exam DLP = 210.55 mGy-cm. This CT exam was performed using one or more of the following dose reduction techniques: Automated exposure control, adjustment of the mA and/or kV according to patient size, and/or use of iterative reconstruction technique. FINDINGS: LOWER THORAX: Unremarkable. Lung bases clear. No infiltrate effusion or basilar pneumothorax. LIVER: Unremarkable. No gross lesion or ductal dilatation. GALLBLADDER AND BILE DUCTS: Unremarkable. PANCREAS: Unremarkable. No mass. No ductal dilatation. SPLEEN: Unremarkable. No splenomegaly. ADRENALS: Unremarkable. KIDNEYS AND URETERS: Unremarkable. No stone or hydronephrosis. BLADDER: Grossly unremarkable. REPRODUCTIVE: Hysterectomy. APPENDIX: Recent appendectomy. BOWEL: Evaluation of the bowel is somewhat limited due to incomplete opacification. The stomach is distended with oral contrast material and air. There are multiple loops of proximal small bowel including the duodenum, in the upper abdomen that exhibit slight thick-walled appearance. Findings could represent an enteritis. Clinical correlation recommended. The there is a large amount of stool seen throughout the colon consistent with fecal retention/constipation. PERITONEUM: Small amount of free fluid is present within the pelvis. Note that the free fluid exhibits increased attenuation suggesting proteinaceous material possibly representing some postoperative hemorrhage. Possibility of superinfection cannot be excluded clinical correlation recommended.. Small amount of subcutaneous air seen in the left anterior lower abdomen.. No definitive evidence of free intraperitoneal air however note is made of few bubbles of air within the subcutaneous tissues left anterior lower abdomen.. LYMPH NODES: Unremarkable. No enlarged lymph nodes. VASCULATURE: Unremarkable. No aortic aneurysm. No significant aortic atherosclerotic calcification or mural plaque present. BONES: No evidence of acute compression fractures nor retropulsed fragments. Vertebral bodies exhibit normal stature. Vertebral bodies and facets normally aligned. There is partial sacralization right aspect of the L5 segment. OTHER FINDINGS: There are scattered calcified injection granulomata both buttocks. IMPRESSION: Recent appendectomy with small amount of free fluid in the pelvis. Note that the free fluid exhibits increased attenuation suggesting proteinaceous material possibly representing some postoperative hemorrhage. Possibility of superinfection cannot be excluded clinical correlation recommended.. Small amount of subcutaneous air seen in the left anterior lower abdomen.. Findings suggestive of localized enteritis involving multiple proximal small bowel loops. Findings also consistent with constipation. Hysterectomy. See above discussion for additional details and findings
[2018-08-11 18:14] VITALS: O2SAT 100
[2018-08-11 18:31] VITALS: BP 165/97; PULSE 60; TEMP 97.7
== END 2018-08-11 18:31 | disposition home or self-care (01) ==
LOC: C.ER 11:26
DX: R10.9 Unspecified abdominal pain (principal); I10 Essential (primary) hypertension; E78.5 Hyperlipidemia, unspecified
CPT/HCPCS: 74177; 80053; 81001; 85025; 85610; 85730; 99284; Q9966; Q9967

== ENCOUNTER 2018-09-09 09:58 | Inpatient (IN) | payer MEDICAID ==
[2018-09-09 10:36] LABS: BASO # 0.1 K/uL (0.0-0.2); BASO % 2.5 % (0.0-2.0); EOS # 0.1 K/uL (0.0-0.7); EOS % 3.1 % (0.0-4.0); LYMPH # 1.5 K/uL (1.0-4.3); LYMPH % 37.9 % (20.0-40.0); MEAN CELL VOLUME 93.9 fL (81.0-99.0); MEAN CORPUSCULAR HEMOGLOBIN 31.9 pg (27.0-31.0); MEAN PLATELET VOLUME 12.1 fL (7.2-11.7); MONO # 0.4 K/uL (0.0-0.8); MONO % 9.7 % (0.0-10.0); NEUT # 1.9 K/uL (1.8-7.0); NEUT % 46.8 % (50.0-75.0); NRBC % 0.1 % (0.0-2.0); RBC 4.08 Mil/uL (3.80-5.20); RED CELL DISTRIBUTION WIDTH 13.6 % (11.5-14.5)
[2018-09-09 10:38] LABS: HCG,QUALITATIVE URINE NEGATIVE (NEGATIVE)
--- NOTE | 2018-09-09 10:41 | C.PDOC ---
History Of Present Illness 53 year old female with PMHx of HTN presents to the ED for admission sent by PMD Dr. Chavez for incarcerated umbilical hernia. Patient denies any vomiting, nausea, fever, chills, chest pain, shortness of breath, urinary symptoms or any other associated symptoms. Time Seen by Provider: 09/09/18 10:12 Chief Complaint (Nursing): Abdominal Pain History Per: Patient History/Exam Limitations: no limitations Current Symptoms Are (Timing): Still Present Location Of Pain/Discomfort: Periumbilical Radiation Of Pain To:: None Quality Of Discomfort: "Pain" Associated Symptoms: denies: Fever, Chills, Nausea, Vomiting, Diarrhea Past Medical History Reviewed: Historical Data, Nursing Documentation, Vital Signs Vital Signs: Last Vital Signs Temp 97.4 F L 09/09/18 10:00 Pulse 55 L 09/09/18 10:00 Resp 20 09/09/18 10:00 BP 138/80 09/09/18 10:00 Pulse Ox 100 09/09/18 10:00 - Medical History PMH: Gastritis, HTN, Hypercholesterolemia, Hyperlipidemia Denies: Chronic Kidney Disease Surgical History: Appendectomy - [facility] Procedures RESECTION OF APPENDIX, PERCUTANEOUS ENDOSCOPIC APPROACH (08/04/18) Family History: States: No Known Family Hx - Social History Hx Alcohol Use: No Hx Substance Use: No - Immunization History Hx Tetanus Toxoid Vaccination: No Hx Influenza Vaccination: Yes Hx Pneumococcal Vaccination: Yes Review Of Systems Except As Marked, All Systems Reviewed And Found Negative. Constitutional: Negative for: Fever, Chills Cardiovascular: Negative for: Chest Pain Respiratory: Negative for: Shortness of Breath Gastrointestinal: Positive for: Abdominal Pain. Negative for: Nausea, Vomiting, Diarrhea Genitourinary: Negative for: Dysuria, Hematuria Skin: Negative for: Rash Neurological: Negative for: Headache Physical Exam - Physical Exam Appears: Non-toxic, No Acute Distress Skin: Warm, Dry Head: Normacephalic Eye(s): bilateral: Normal Inspection Nose: Normal Oral Mucosa: Moist Neck: Supple Chest: Symmetrical Cardiovascular: Rhythm Regular Respiratory: Normal Breath Sounds, No Rales, No Rhonchi, No Wheezing Gastrointestinal/Abdominal: Soft, Tenderness (umbilical region ), No Guarding, No Rebound Extremity: Normal ROM Pulses: Left Dorsalis Pedis: Normal, Right Dorsalis Pedis: Normal Neurological/Psych: Oriented x3, Normal Speech Gait: Steady ED Course And Treatment - Laboratory Results Result Diagrams: 09/09/18 10:31 09/09/18 10:31 Lab Interpretation: Normal ECG: Interpreted By Me ECG Rhythm: Sinus Bradycardia ECG Interpretation: Normal Rate From EC O2 Sat by Pulse Oximetry: 100 (RA) Pulse Ox Interpretation: Normal - Radiology CXR: Interpreted by Me CXR Interpretation: Yes: No Acute Disease Reassessment Condition: Unchanged Medical Decision Making Medical Decision Making: Plan - Bloodwork - CXR - UA Disposition - Disposition Disposition: HOSPITALIZED Disposition Time: 11:00 Condition: GOOD - Clinical Impression Clinical Impression: Abdominal pain - PA / ADJUNCT PROFESSOR OF LAW / Resident Statement MD/DO has reviewed & agrees with the documentation as recorded. - Scribe Statement The provider has reviewed the documentation as recorded by the Scribe Bernice Alegria All medical record entries made by the Olivieribe were at my direction and personally dictated by me. I have reviewed the chart and agree that the record accurately reflects my personal performance of the history, physical exam, medical decision making, and the department course for this patient. I have also personally directed, reviewed, and agree with the discharge instructions and disposition. Decision To Admit - Pt Status Changed To: Hospital Disposition Of: Inpatient - Admit Certification Admit to Inpatient:: After my assessment, the patient will require hospitalization for at least two midnights. This is because of the severity of symptoms shown, intensity of services needed, and/or the medical risk in this patient being treated as an outpatient. - InPatient: Physician Admission Certification:: Incarcerated hernia - . Bed Request Type: Regular Admitting Physician: Jerry Chavez Patient Diagnosis: Abdominal pain
[2018-09-09 10:42] LABS: SQUAMOUS EPITHIAL < 1 /hpf (0-5); URINE BILIRUBIN NEGATIVE (NEGATIVE); URINE BLOOD NEGATIVE (NEGATIVE); URINE CLARITY Clear (Clear); URINE COLOR Yellow (YELLOW); URINE GLUCOSE (UA) NORMAL (Normal); URINE LEUKOCYTE ESTERASE NEG Leu/uL (Negative); URINE PROTEIN NEGATIVE (NEGATIVE); URINE UROBILINOGEN NORMAL mg/dL (0.2-1.0)
[2018-09-09 10:44] LABS: INR 1.1; PROTHROMBIN TIME 11.9 SECONDS (9.7-12.2)
--- NOTE | 2018-09-09 10:56 | RAD ---
HISTORY: BASELINE COMPARISON: Chest x-ray performed 08/04/18 TECHNIQUE: Chest PA and lateral FINDINGS: LUNGS: Hyperinflation may be seen in the setting of COPD. Increased lucencies especially within the bilateral upper lung dubon compatible with underlying emphysema. Biapical pleural thickening and/or scarring. Streaky atelectasis or scarring within the medial upper lobes. No significant pleural effusion or definite pneumothorax. Please note that chest x-ray has limited sensitivity for the detection of pulmonary masses. CARDIOVASCULAR: Heart size appears within normal limits. Atherosclerotic calcifications of the aorta. OSSEOUS STRUCTURES: Degenerative changes. VISUALIZED UPPER ABDOMEN: Unremarkable. OTHER FINDINGS: None. IMPRESSION: COPD/emphysema. Biapical pleural thickening and/or scarring. Streaky atelectasis or scarring within the medial upper lobes.
[2018-09-09 11:00] LABS: ALB/GLOB RATIO 1.5 (1.0-2.1); ALBUMIN 4.5 g/dL (3.5-5.0); ALT/SGPT < 6 U/L (9-52); AST/SGOT 26 U/L (14-36); BLOOD UREA NITROGEN 15 mg/dL (7-17); CALCIUM 9.7 mg/dl (8.6-10.4); GFR NON-AFRICAN AMERICAN > 60
[2018-09-09] MEDS ORDERED: Midazolam 2 MG/2 ML VIAL ONE (15:11)
[2018-09-09] MEDS ORDERED: Propofol 10 mg/ml Inj (20 ML) ONE (15:11)
[2018-09-09] MEDS: ceFAZolin 1 gm in NS 1 GM/100 ML BAG IVPB ONE ×2 (15:15→17:15)
[2018-09-09] MEDS ORDERED: Bupivacaine 0.25% 20 ML INJ IJ ONE (15:24)
[2018-09-09] MEDS ORDERED: HYDROmorphone 0.5 mg/0.5 ml ISec IVP PRN (15:37)
[2018-09-09] MEDS: Oxycodone/Acetaminophen 5/325 mg Tab PO PRN ×2 (17:33→21:33)
[2018-09-10] MEDS: Oxycodone/Acetaminophen 5/325 mg Tab PO PRN (04:31)
[2018-09-10 07:35] LABS: BASO % 0.5 % (0.0-2.0); EOS % 0.5 % (0.0-4.0); HEMOGLOBIN 11.9 g/dL (11.0-16.0); MEAN CELL VOLUME 92.7 fL (81.0-99.0); MEAN CORPUSCULAR HEMOGLOBIN 31.8 pg (27.0-31.0); MEAN CORPUSCULAR HGB CONC 34.3 g/dL (33.0-37.0); MEAN PLATELET VOLUME 11.8 fL (7.2-11.7); MONO # 0.4 K/uL (0.0-0.8); MONO % 6.9 % (0.0-10.0); NEUT # 4.1 K/uL (1.8-7.0); NEUT % 74.1 % (50.0-75.0); RBC 3.74 Mil/uL (3.80-5.20); RED CELL DISTRIBUTION WIDTH 13.6 % (11.5-14.5); WHITE BLOOD COUNT 5.5 K/uL (4.8-10.8)
[2018-09-10 07:45] LABS: BLOOD UREA NITROGEN 12 mg/dL (7-17); CALCIUM 9.1 mg/dl (8.6-10.4); GFR NON-AFRICAN AMERICAN > 60
[2018-09-10 08:06] VITALS: O2SAT 97
--- NOTE | 2018-09-10 08:40 | OP ---
PROCEDURE DATE: 09/09/2018 PREOPERATIVE DIAGNOSIS: Incarcerated incisional (umbilical) hernia. POSTOPERATIVE DIAGNOSIS: Incarcerated incisional (umbilical) hernia. PROCEDURE PERFORMED: Repair of incarcerated incisional hernia with lysis of adhesions. SURGEON: Jerry Chavez MD ANESTHESIA: General. BLOOD LOSS: 20 mL. POSTOPERATIVE CONDITION: Stable. INDICATIONS FOR SURGERY: This is a 53-year-old female, admitted with an incarcerated umbilical hernia, status post laparoscopic appendectomy. She is now taken to the OR for repair. DESCRIPTION OF PROCEDURE: The patient was taken to the operating room. General anesthesia was administered. A transverse incision was made. Hernia sac was identified, dissected free, and removed and sent for specimen. Adhesions to the small bowel, large bowel around the peritoneum were taken down sharply. Small serosal tears were repaired with silk. After the hernia had been cleared, an interrupted repair was accomplished using interrupted 2-0 Prolene sutures. Wound was irrigated with saline. Tissue flap closure was performed with multiple layers of Monocryl, subcuticular Monocryl and glue. The patient tolerated the procedure well and returned to the recovery room in stable condition. Jerry Chavez MD
[2018-09-10] MEDS ORDERED: Pantoprazole 40 mg EC Tab PO SCH (10:00)
[2018-09-10 16:51] VITALS: BP 129/80; PULSE 65; RESP 20; TEMP 97.9
--- NOTE | 2018-09-13 22:02 | CARD ---
APPROVED REPORT Date of service: 09/09/2018 EKG Measurement Heart [id number] <Conclusion> Sinus bradycardia Otherwise normal ECG
== END 2018-09-10 18:38 | disposition home or self-care (01) | DRG 160 ==
LOC: C.ER 09:58 → C.5S 10:31
PROVIDERS: ADMIT Surgery; ATTEND Surgery
PROC: 0WQF0ZZ Repair Abdominal Wall, Open Approach (ICD-10-PCS; principal; 2018-09-09 18:45)
DX: K43.0 Incisional hernia with obstruction, without gangrene (principal); E78.5 Hyperlipidemia, unspecified; I10 Essential (primary) hypertension